=== PATIENT | female | born 1955 | race African-American/Black ===

== ENCOUNTER 2018-09-09 10:51 | Emergency (ER) | payer SELFPAY ==
[~2018-09-09] VITALS: Ht 160 cm; Wt 91.0 kg
[~2018-09-09 10:51] MED LIST: AMIT25TA9 PO; AMLO5TAB4 PO; BENA40TA9 PO; CYCL5TAB PO; GLIP5TAB12 PO; HYDR25TA PO; METO-385 PO; OXYB5TAB11 PO; SITA1TAB8 PO
[2018-09-09 11:23] VITALS: BP 145/85
[2018-09-09] MEDS ORDERED: TETANUS, DIPHTHERIA, PERTUSSIS VAC/PF 0.5ML (>7YR OLD) IM ONE (11:30)
== END 2018-09-09 13:25 | disposition home or self-care (01) ==
LOC: ER 10:51
DX: S01.01XA Laceration without foreign body of scalp, initial encounter (principal); E11.9 Type 2 diabetes mellitus without complications; E78.00 Pure hypercholesterolemia, unspecified; I10 Essential (primary) hypertension; Z88.0 Allergy status to penicillin; Z88.5 Allergy status to narcotic agent; Z88.6 Allergy status to analgesic agent; Z90.710 Acquired absence of both cervix and uterus; W01.0XXA Fall on same level from slipping, tripping and stumbling without subsequent striking against object, initial encounter; Y93.89 Activity, other specified; Y92.018 Other place in single-family (private) house as the place of occurrence of the external cause
CPT/HCPCS: 12011; 70450; 70486; 90471; 90715; 99284; A4217; Z7610